=== PATIENT | male | born 1945 | race Caucasian/White ===

== ENCOUNTER 2017-06-07 21:02 | Emergency (ER) | payer MEDICARE, OTHER ==
[~2017-06-07] VITALS: Ht 182.9 cm; Wt 102.3 kg
[2017-06-07 21:03] VITALS: TEMP 97.9
[2017-06-07] MEDS ORDERED: LOPRESSOR 550 MG/TAB PO (21:24)
[2017-06-07 21:49] LABS: HEMATOCRIT 47.2 % (42.0-52.0); HEMOGLOBIN 15.3 g/dl (13.5-18.0); MEAN CELL VOLUME 94 fl (80.0-100.0); MEAN CORPUSCULAR HEMOGLOBIN 31 pg (27.0-31.0); MEAN CORPUSCULAR HGB CONC 32 g/dl (33.0-37.0); MEAN PLATELET VOLUME 10.1 fl (7.4-10.4); PLATELET COUNT 204 K/mm3 (130-400); REDCELL DISTRIBUTION WIDTH-CV 13.2 % (11.5-14.5)
[2017-06-07 22:01] LABS: BAND 12 % (0-10); LYMPHOCYTE 6 % (20.0-51.0); NEUTROPHILS 75 % (42.0-75.2)
[2017-06-07 22:02] LABS: POLYCHROMASIA 1+
[2017-06-07 22:03] LABS: ALBUMIN 4.3 gm/dL (3.5-5.0); ANISOCYTOSIS 2+; BILIRUBIN,TOTAL 0.9 mg/dL (0.0-1.0); C-REACTIVE PROTEIN 3.6 mg/dL (0.0-0.9); CALCIUM 8.7 mg/dL (8.4-10.2); CREATININE, serum 1.03 mg/dL (0.66-1.25); MICROCYTOSIS 1+; POTASSIUM 4.5 mmol/L (3.4-5.0); ROULEAUX 1+; TEAR DROP CELLS 1+; TOTAL PROTEIN 7.5 gm/dL (6.4-8.2)
[2017-06-07 22:07] LABS: INFLUENZA A NEGATIVE; INFLUENZA B NEGATIVE
[2017-06-07] MEDS ORDERED: CIPRO 500MG TA500 MG PO (22:57)
[2017-06-07] MEDS ORDERED: ZOFRAN ODT4 MG PO (23:01)
[2017-06-07 23:31] VITALS: BP 122/72; PULSE 82
== END 2017-06-07 23:32 | disposition home or self-care (01) ==
LOC: COL.ER 21:02
PROVIDERS: Emergency Medicine
DX: E86.9 Volume depletion, unspecified (principal); R19.7 Diarrhea, unspecified; I48.91 Unspecified atrial fibrillation; I10 Essential (primary) hypertension
CPT/HCPCS: J2405; J7030; J7050; Q9967